=== PATIENT | female | born 1955 | race Two or more races ===

== ENCOUNTER 2020-02-11 15:17 | Emergency (ER) | payer MEDICARE, MEDICAID ==
[~2020-02-11] VITALS: Ht 149.9 cm; Wt 81.6 kg
[2020-02-11 15:31] VITALS: BP 147/81
[2020-02-11] MEDS ORDERED: KETOROLAC TROMETH 30 MG/ML 1ML VIAL IV ONE (17:00)
== END 2020-02-11 17:24 | disposition home or self-care (01) ==
LOC: EDBD 15:17 → ER 15:17
DX: S83.92XA Sprain of unspecified site of left knee, initial encounter (principal); S50.02XA Contusion of left elbow, initial encounter; V43.52XA Car driver injured in collision with other type car in traffic accident, initial encounter; Y93.89 Activity, other specified; Y92.488 Other paved roadways as the place of occurrence of the external cause; Y99.8 Other external cause status
CPT/HCPCS: 73080; 73562; 96374; 99284; J1885